=== PATIENT | male | born 1970 | race Native Hawaiian/Other Pacific Islander ===

== ENCOUNTER 2017-12-01 11:45 | Outpatient (CLI) | payer BC | END 2017-12-01 21:19 | disposition home or self-care (01) | LOC: RAD 11:45 | DX: M54.12 Radiculopathy, cervical region (principal) ==

== ENCOUNTER 2020-03-19 13:51 | Outpatient (CLI) | payer OTHER | END 2020-03-19 20:01 | disposition home or self-care (01) | LOC: US 13:51 | PROVIDERS: ATTEND Nurse Practitioner | DX: K42.9 Umbilical hernia without obstruction or gangrene (principal) ==